=== PATIENT | male | born 1995 | race Caucasian/White ===

== ENCOUNTER 2018-03-16 09:51 | Emergency (ER) | payer OTHER ==
[~2018-03-16] VITALS: Ht 188 cm; Wt 65.9 kg
[2018-03-16] MEDS ORDERED: GADOBUTROL 10 MMOL/10 ML VIAL ONE (11:30)
[2018-03-16 11:59] VITALS: BP 130/83
== END 2018-03-16 12:45 | disposition home or self-care (01) ==
LOC: ED 10:13
DX: R51 Headache (principal)
CPT/HCPCS: 70553; 99284; A9585